=== PATIENT | female | born 1990 | race Hispanic/Latino ===

== ENCOUNTER 2016-10-29 00:06 | Emergency (ER) | payer OTHER, SELFPAY ==
[~2016-10-29] VITALS: Ht 154.9 cm; Wt 104.0 kg
[2016-10-29] MEDS ORDERED: NYQU1LIQ PO (00:19)
[2016-10-29] MEDS ORDERED: CLAR10CA3 PO (00:19)
[2016-10-29] MEDS ORDERED: AMOXICILLIN 500 MG CAP PO ONE (01:15)
[2016-10-29] MEDS ORDERED: AMOX500C PO (01:17)
[2016-10-29] MEDS ORDERED: IBUP-1022 PO (01:17)
[2016-10-29 01:24] VITALS: BP 128/78
[2016-10-29] MEDS ORDERED: IBUPROFEN 600 MG TAB PO ONE (01:30)
== END 2016-10-29 01:29 | disposition home or self-care (01) ==
LOC: M ED 00:06
DX: J02.0 Streptococcal pharyngitis (principal); F17.200 Nicotine dependence, unspecified, uncomplicated; Z79.899 Other long term (current) drug therapy; Z88.2 Allergy status to sulfonamides

== ENCOUNTER → 2016-11-16 | Outpatient (REF) | payer OTHER ==
[~2016-11-16] MED LIST: AMOX500C PO; CLAR10CA3 PO; IBUP-1022 PO; NYQU1LIQ PO
[2016-11-16 12:37] LABS: ALBUMIN 3.5 GM/DL (3.2-5.2); ALKALINE PHOSPHATASE 79 U/L (45-117); ALT/SGPT 45 U/L (12-78); ANION GAP 8 MEQ/L (8-16); AST/SGOT 25 U/L (15-37); BILIRUBIN,TOTAL 0.4 MG/DL (0.2-1.0); BLOOD UREA NITROGEN 14 MG/DL (7-18); CALCIUM LEVEL 8.6 MG/DL (8.5-10.1); CARBON DIOXIDE LEVEL 26 MEQ/L (21-32); CHLORIDE LEVEL 107 MEQ/L (98-107); CHOLESTEROL LEVEL 150 MG/DL (<200); GLOMERULAR FILTRATION RATE > 60.0 (>60); GLUCOSE, FASTING 107 MG/DL (70-105); POTASSIUM SERUM 4.1 MEQ/L (3.5-5.1); SODIUM LEVEL 141 MEQ/L (136-145); TRIGLYCERIDES LEVEL 171 MG/DL (<150)
== END ==
LOC: M LAB REF 11:25
PROVIDERS: ATTEND Family Medicine Addiction Medicine
DX: Z00.01 Encounter for general adult medical examination with abnormal findings (principal)

== ENCOUNTER → 2016-12-01 | Outpatient (REF) | payer OTHER ==
[2016-12-01 17:53] LABS: FREE T4 0.86 NG/DL (0.76-1.46)
== END ==
LOC: M LAB REF 11:54
PROVIDERS: ATTEND Family Medicine Addiction Medicine
DX: E03.9 Hypothyroidism, unspecified (principal)

== ENCOUNTER → 2016-12-24 | Outpatient (REF) | payer OTHER | LOC: M LAB REF 16:40 | PROVIDERS: ATTEND Family Medicine Addiction Medicine | DX: Z12.4 Encounter for screening for malignant neoplasm of cervix (principal) ==

== ENCOUNTER 2018-03-05 17:22 | Emergency (ER) | payer OTHER, SELFPAY ==
[~2018-03-05] VITALS: Ht 154.9 cm; Wt 113.6 kg
[2018-03-05 17:23] VITALS: BP 139/73
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
== END 2018-03-05 18:36 | disposition home or self-care (01) ==
LOC: M ED 17:22
DX: S93.402A Sprain of unspecified ligament of left ankle, initial encounter (principal); X50.1XXA Overexertion from prolonged static or awkward postures, initial encounter; Y92.89 Other specified places as the place of occurrence of the external cause; Y99.0 Civilian activity done for income or pay; F17.200 Nicotine dependence, unspecified, uncomplicated; Z88.2 Allergy status to sulfonamides

== ENCOUNTER 2018-04-08 23:00 | Emergency (ER) | payer OTHER, SELFPAY ==
[2018-04-08 23:00] VITALS: BP 145/95
[2018-04-08] MEDS ORDERED: IBUPROFEN 600 MG TAB PO ONE (23:15)
[2018-04-08] MEDS ORDERED: OSELTAMIVIR PHOSPHATE 75 MG CAP (TAMIFLU) PO ONE (23:15)
[2018-04-08] MEDS ORDERED: OSEL75CA PO (23:17)
== END 2018-04-08 23:36 | disposition home or self-care (01) ==
LOC: M ED 23:00
DX: J11.1 Influenza due to unidentified influenza virus with other respiratory manifestations (principal); Z88.2 Allergy status to sulfonamides

== ENCOUNTER 2019-01-02 02:48 | Emergency (ER) | payer OTHER, SELFPAY ==
[~2019-01-02] VITALS: Ht 154.9 cm; Wt 131.7 kg
[~2019-01-02 02:48] MED LIST changes: +OSEL75CA PO
[2019-01-02] MEDS ORDERED: ONDANSETRON 4 MG ORAL DISINTEGRATING TAB (Q0162 PER 1MG) PO ONE (03:30)
[2019-01-02 03:34] LABS: APPEARANCE, URINE CLEAR (CLEAR); BACTERIA, URINE AUTO NEGATIVE (NEGATIVE); BILIRUBIN, URINE AUTO NEGATIVE (NEGATIVE); BLOOD, URINE BLOOD NEGATIVE (NEGATIVE); COLOR, URINE YELLOW (YELLOW); GLUCOSE, URINE (UA) AUTO NEGATIVE (NEGATIVE); KETONE, URINE AUTO NEGATIVE (NEGATIVE); LEUKOCYTE ESTERASE, URINE AUTO NEGATIVE (NEGATIVE); NITRITE, URINE AUTO NEGATIVE (NEGATIVE); PROTEIN, URINE AUTO NEGATIVE (NEGATIVE); RBC, URINE AUTO 2 /HPF (0-3); SPECIFIC GRAVITY URINE AUTO 1.018 (1.002-1.035); SQUAMOUS EPITHELIAL CELL UR AU 1 /HPF (0-6); UROBILINOGEN, URINE AUTO 0.2 mg/dL (0.0-2.0); WBC, URINE AUTO 1 /HPF (0-3)
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
[2019-01-02 04:30] VITALS: BP 125/80
== END 2019-01-02 04:56 | disposition home or self-care (01) ==
LOC: M ED 02:48
DX: Z04.1 Encounter for examination and observation following transport accident (principal); V40.5XXA Car driver injured in collision with pedestrian or animal in traffic accident, initial encounter; F17.210 Nicotine dependence, cigarettes, uncomplicated; Z88.2 Allergy status to sulfonamides
CPT/HCPCS: 70450; 72125; 81001; 84702; 99284; Q0162

== ENCOUNTER 2019-03-10 14:51 | Emergency (ER) | payer OTHER ==
[~2019-03-10] VITALS: Ht 154.9 cm; Wt 128.0 kg
[2019-03-10] MEDS ORDERED: LEVO50TA5 PO (16:08)
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
[2019-03-10 17:34] VITALS: BP 116/53
== END 2019-03-10 17:36 | disposition home or self-care (01) ==
LOC: M ED 14:51
DX: S61.210A Laceration without foreign body of right index finger without damage to nail, initial encounter (principal); W23.0XXA Caught, crushed, jammed, or pinched between moving objects, initial encounter; Y99.0 Civilian activity done for income or pay; F17.210 Nicotine dependence, cigarettes, uncomplicated; Z88.2 Allergy status to sulfonamides; Z79.899 Other long term (current) drug therapy

== ENCOUNTER 2019-11-13 20:33 | Emergency (ER) | payer MEDICAID, OTHER ==
[~2019-11-13] VITALS: Ht 154.9 cm; Wt 139.1 kg
[~2019-11-13 20:33] MED LIST changes: +LEVO50TA5 PO
[2019-11-13 22:13] LABS: BASO % 0.3 % (0.0-1.0); HEMATOCRIT 38.5 % (36.0-47.0); HEMOGLOBIN 12.5 g/dl (12.0-15.5); LYMPH # 3.7 10^3/uL (1.5-5.0); LYMPH % 31.4 % (24.0-44.0); MEAN CORPUSCULAR HEMOGLOBIN 27.8 pg (27.0-33.0); MEAN CORPUSCULAR HGB CONC 32.5 g/dl (32.0-36.5); MEAN CORPUSCULAR VOLUME 85.7 fl (80.0-96.0); MONO # 0.3 10^3/uL (0.0-0.8); MONO % 2.9 % (0.0-5.0); NEUTROPHILS # 7.7 10^3/uL (1.5-8.5); PLATELET COUNT, AUTOMATED 256 10^3/uL (150-450); RED BLOOD COUNT 4.49 10^6/uL (4.00-5.40); WHITE BLOOD COUNT 11.8 10^3/uL (4.0-10.0)
[2019-11-13 22:27] LABS: INR 1.02; PARTIAL THROMBOPLASTIN TIME 31.5 SECONDS (25.0-38.4); PROTHROMBIN TIME 13.6 SECONDS (11.8-14.0)
[2019-11-13 22:45] LABS: ALBUMIN 3.7 GM/DL (3.2-5.2); ALT/SGPT 129 U/L (12-78); BILIRUBIN,DIRECT < 0.1 MG/DL (0.0-0.2); BILIRUBIN,TOTAL 0.2 MG/DL (0.2-1.0); FREE T4 0.94 NG/DL (0.76-1.46); TOTAL PROTEIN 7.4 GM/DL (6.4-8.2)
[2019-11-13 23:19] LABS: BLOOD UREA NITROGEN 12 MG/DL (7-18); CALCIUM LEVEL 8.6 MG/DL (8.5-10.1); CARBON DIOXIDE LEVEL 27 MEQ/L (21-32); CHLORIDE LEVEL 106 MEQ/L (98-107); CREATININE FOR GFR 0.94 MG/DL (0.55-1.30); GLOMERULAR FILTRATION RATE > 60.0 (>60); GLUCOSE, FASTING 168 MG/DL (70-100); POTASSIUM SERUM 3.6 MEQ/L (3.5-5.1); SODIUM LEVEL 139 MEQ/L (136-145)
[2019-11-14 00:12] LABS: HEMOGLOBIN A1c 6.8 %
[2019-11-14] MEDS ORDERED: ONDA4TAB6 PO (00:51)
[2019-11-14] MEDS ORDERED: [UNRECOGNIZED DRUG - CODE] PO (00:51)
[2019-11-14 00:58] VITALS: BP 141/85
--- NOTE | 2019-11-30 09:15 | REP ---
PELVIC SONOGRAPHY: (REPEAT DICTATION) HISTORY: Heavy irregular bleeding. Preliminary report is provided at the time of exam by [email or web address]. FINDINGS: Transabdominal and transvaginal scanning are included. The bladder is largely empty at the time of scanning. Uterine dimensions are normal measured at 9.5 x 4.6 x 5.6 cm. Endometrial echo is 1.8 cm thick and centrally placed. No focal uterine mass is seen. No free fluid is noted. Right ovary is seen only transabdominally and appears normal measuring 3.2 x 2.5 x 2.9 cm. The left ovary measures 3.2 x 2.4 x 2.3 cm. Normal Doppler flow is recorded in the left ovary. No free fluid is seen. IMPRESSION: No sonographic abnormality. MTDD
== END 2019-11-14 01:01 | disposition home or self-care (01) ==
LOC: M ED 20:33
DX: N93.9 Abnormal uterine and vaginal bleeding, unspecified (principal); R73.9 Hyperglycemia, unspecified; F17.200 Nicotine dependence, unspecified, uncomplicated; F12.10 Cannabis abuse, uncomplicated; Z79.899 Other long term (current) drug therapy; Z88.1 Allergy status to other antibiotic agents

== ENCOUNTER → 2023-11-17 | Outpatient (CLI) | payer MEDICAID, OTHER ==
[~2023-11-17] MED LIST changes: +ONDA-282 PO; +[UNRECOGNIZED DRUG - CODE] PO
[2023-11-17 08:43] LABS: BASO % 0.5 % (0.0-1.0); HEMATOCRIT 44.3 % (36.0-47.0); HEMOGLOBIN 14.6 g/dl (12.0-15.5); LYMPH # 3.2 10^3/uL (1.5-5.0); LYMPH % 41.9 % (24.0-44.0); MEAN CORPUSCULAR HEMOGLOBIN 27.5 pg (27.0-33.0); MEAN CORPUSCULAR VOLUME 83.4 fl (80.0-96.0); MONO # 0.3 10^3/uL (0.0-0.8); MONO % 3.2 % (2.0-8.0); NEUTROPHILS # 4.2 10^3/uL (1.5-8.5); PLATELET COUNT, AUTOMATED 225 10^3/uL (150-450); RED BLOOD COUNT 5.31 10^6/uL (4.00-5.40); WHITE BLOOD COUNT 7.7 10^3/uL (4.0-10.0)
[2023-11-17 09:06] LABS: ALBUMIN 3.7 G/DL (3.2-5.2); ALKALINE PHOSPHATASE 116 U/L (46-116); ALT/SGPT 158 U/L (7.0-40); AST/SGOT 122 U/L (<34); BILIRUBIN,TOTAL 0.7 MG/DL (0.3-1.2); BLOOD UREA NITROGEN 12 MG/DL (9-23); CALCIUM LEVEL 9.2 MG/DL (8.5-10.1); CARBON DIOXIDE LEVEL 27 MMOL/L (20-31); CHLORIDE LEVEL 103 MMOL/L (98-107); CHOLESTEROL LEVEL 204 MG/DL (<200); CHOLESTEROL RISK RATIO 5.71 (<5); CREATININE FOR GFR 0.49 MG/DL (0.55-1.30); GLOMERULAR FILTRATION RATE > 60.0 (>60); GLUCOSE, FASTING 308 MG/DL (60-100); HDL CHOLESTEROL 35.7 MG/DL (>40); LDL CHOLESTEROL 120.1 MG/DL (<100); NON-HDL-C 168.3 MG/DL; POTASSIUM SERUM 4.2 MMOL/L (3.5-5.1); SODIUM LEVEL 134 MMOL/L (136-145); TOTAL PROTEIN 7.4 G/DL (5.7-8.2); TRIGLYCERIDES LEVEL 241 MG/DL (<150)
[2023-11-17 09:09] LABS: FREE T4 1.15 NG/DL (0.89-1.76)
[2023-11-17 11:17] LABS: HEMOGLOBIN A1c 11.9 % (4.0-6.0)
== END ==
LOC: M LAB 08:03
PROVIDERS: ATTEND Registered Nurse
DX: E03.9 Hypothyroidism, unspecified (principal); E66.9 Obesity, unspecified

== ENCOUNTER → 2023-11-22 | Outpatient (CLI) | payer OTHER ==
[2023-11-22 18:39] LABS: INR 1.08; PROTHROMBIN TIME 13.7 SECONDS (12.5-14.5)
[2023-11-22 18:41] LABS: IRON (FE) 62 UG/DL (50-170); TOTAL IRON BINDING CAPACITY 364 UG/DL (250-425)
[2023-11-22 18:44] LABS: FERRITIN 68.8 NG/ML (7.3-270.7)
[2023-11-22 18:55] LABS: HEPATITIS B SURFACE ANTIGEN NEGATIVE (NEGATIVE)
[2023-11-22 19:16] LABS: HEPATITIS C VIRUS ABY INDEX < 0.02 INDEX (<0.8)
[2023-11-22 19:17] LABS: HEPATITIS B CORE ANTIBODY IGM NEGATIVE (NEGATIVE)
== END ==
LOC: M LAB 15:55
PROVIDERS: ATTEND Registered Nurse
DX: R94.5 Abnormal results of liver function studies (principal)

== ENCOUNTER → 2023-12-22 | Outpatient (CLI) | payer OTHER | LOC: M WHC 13:37 | PROVIDERS: ATTEND Registered Nurse | DX: N92.6 Irregular menstruation, unspecified (principal); N88.8 Other specified noninflammatory disorders of cervix uteri ==

== ENCOUNTER → 2024-03-09 | Outpatient (CLI) | payer OTHER ==
[2024-03-09 11:06] LABS: BASO # 0.1 10^3/uL (0.0-0.2); BASO % 0.5 % (0.0-1.0); EOS % 0.1 % (0.0-3.0); HEMATOCRIT 41.4 % (36.0-47.0); HEMOGLOBIN 13.3 g/dl (12.0-15.5); LYMPH # 3.8 10^3/uL (1.5-5.0); LYMPH % 40.2 % (24.0-44.0); MEAN CORPUSCULAR HEMOGLOBIN 26.1 pg (27.0-33.0); MEAN CORPUSCULAR HGB CONC 32.1 g/dl (32.0-36.5); MEAN CORPUSCULAR VOLUME 81.2 fl (80.0-96.0); MONO # 0.3 10^3/uL (0.0-0.8); MONO % 2.9 % (2.0-8.0); NEUTROPHILS # 5.3 10^3/uL (1.5-8.5); PLATELET COUNT, AUTOMATED 265 10^3/uL (150-450); WHITE BLOOD COUNT 9.5 10^3/uL (4.0-10.0)
[2024-03-09 11:30] LABS: HEMOGLOBIN A1c 6.2 % (4.0-6.0)
[2024-03-09 11:32] LABS: ALBUMIN 3.8 G/DL (3.2-5.2); ALKALINE PHOSPHATASE 85 U/L (35-104); ALT/SGPT 41 U/L (7.0-40); AST/SGOT 28 U/L (<34); BILIRUBIN,TOTAL 0.6 MG/DL (0.3-1.2); BLOOD UREA NITROGEN 13 MG/DL (9-23); CALCIUM LEVEL 9.6 MG/DL (8.5-10.1); CARBON DIOXIDE LEVEL 29 MMOL/L (20-31); CHLORIDE LEVEL 102 MMOL/L (98-107); CHOLESTEROL LEVEL 188 MG/DL (<200); CREATININE FOR GFR 0.71 MG/DL (0.55-1.30); GLOMERULAR FILTRATION RATE > 60.0 (>60); GLUCOSE, FASTING 98 MG/DL (60-100); HDL CHOLESTEROL 38.3 MG/DL (>40); LDL CHOLESTEROL 113.1 MG/DL (<100); NON-HDL-C 149.7 MG/DL; SODIUM LEVEL 138 MMOL/L (136-145); TOTAL PROTEIN 7.8 G/DL (5.7-8.2); TRIGLYCERIDES LEVEL 183 MG/DL (<150)
[2024-03-09 11:34] LABS: FREE T4 1.17 NG/DL (0.89-1.76); THYROID STIMULATING HORMONE 4.574 uIU/ML (0.55-4.78)
== END ==
LOC: M LAB 08:35
PROVIDERS: ATTEND Registered Nurse
DX: E11.69 Type 2 diabetes mellitus with other specified complication (principal); E03.9 Hypothyroidism, unspecified; E78.2 Mixed hyperlipidemia

== ENCOUNTER 2024-11-12 23:20 | Emergency (ER) | payer OTHER ==
[~2024-11-12] VITALS: Ht 154.9 cm; Wt 129.9 kg
[~2024-11-12 23:20] MED LIST changes: -IBUP-1022 PO; +IBUP600T42 PO
[2024-11-13 04:21] LABS: BASO # 0.0 10^3/uL (0.0-0.2); BASO % 0.4 % (0.0-1.0); EOS # 0.0 10^3/uL (0.0-0.5); EOS % 0.1 % (0.0-3.0); LYMPH # 4.4 10^3/uL (1.5-5.0); LYMPH % 47.8 % (24.0-44.0); MONO # 0.4 10^3/uL (0.0-0.8); MONO % 4.1 % (2.0-8.0); NEUTROPHILS # 4.4 10^3/uL (1.5-8.5); NEUTROPHILS % 47.4 % (36.0-66.0); PLATELET COUNT, AUTOMATED 244 10^3/uL (150-450)
[2024-11-13 04:43] LABS: ALT/SGPT 58 U/L (7.0-40); AST/SGOT 33 U/L (<34); C REACTIVE PROTEIN QUANTITATIV 1.54 MG/DL (<1.0); CALCIUM LEVEL 8.0 MG/DL (8.5-10.1); CARBON DIOXIDE LEVEL 27 MMOL/L (20-31); CHLORIDE LEVEL 105 MMOL/L (98-107); CREATININE FOR GFR 0.59 MG/DL (0.55-1.30); GLOMERULAR FILTRATION RATE > 90.0 (>60); POTASSIUM SERUM 3.8 MMOL/L (3.5-5.1); SODIUM LEVEL 138 MMOL/L (136-145)
[2024-11-13] MEDS ORDERED: PROBCAP14 PO (05:02)
[2024-11-13] MEDS ORDERED: CLEO300C2 PO (05:02)
[2024-11-13 05:21] VITALS: BP 120/76; TEMP 98.9; O2SAT 97
== END 2024-11-13 05:20 | disposition home or self-care (01) ==
LOC: M ED 23:20
DX: N75.1 Abscess of Bartholin's gland (principal); E11.9 Type 2 diabetes mellitus without complications; Z79.2 Long term (current) use of antibiotics; Z79.899 Other long term (current) drug therapy; Z88.2 Allergy status to sulfonamides